=== PATIENT | male | born 2000 | race Caucasian/White ===

== ENCOUNTER → 2024-03-09 | Outpatient (CLI) | payer BC ==
--- NOTE | 2024-03-10 07:18 | CA ---
Transthoracic Echo Report Name: Bonifacio Headley Age: 23 Gender: M : 2000 Exam Date: 03/09/2024 11:29 Exam Location: [facility] Ht (in): 70 Wt (lb): 180 Ordering Physician: Bautista Hickey MD Attending/Referring Phys: Bautista Hickey MD Farm Equipment Engineer Amina Fan, [facility] Procedure CPT: Indications: R55 SYNCOPE AND COLLAPSE Cardiac Hx: Technical Quality: Fair Contrast 1: Total Dose (mL): Contrast 2: Total Dose (mL): MEASUREMENTS (Male / Female) Normal Values 2D ECHO LV Diastolic Diameter PLAX 5.1 cm 4.2 - 5.9 / 3.9 - 5.3 cm LV Systolic Diameter PLAX 3.6 cm IVS Diastolic Thickness 0.8 cm 0.6 - 1.0 / 0.6 - 0.9 cm LVPW Diastolic Thickness 0.7 cm 0.6 - 1.0 / 0.6 - 0.9 cm LV Relative Wall Thickness 0.3 RV Internal Dim ED PLAX 3.1 cm LVOT Diameter 2.1 cm Aortic Root Diameter 2.8 cm LV Diastolic Volume MOD BP 121.9 cm??? 67 - 155 / 56 - 104 cm??? LV Systolic Volume MOD BP 54.3 cm??? 22 - 58 / 19 - 49 cm??? LV Ejection Fraction MOD BP 55.5 % >= 55 % LV Cardiac Index MOD BP 2679.9 cm???/min???m??? LV Diastolic Volume MOD 4C 121.5 cm??? LV Systolic Volume MOD 4C 58.0 cm??? LV Ejection Fraction MOD 4C 52.3 % LV Cardiac Index MOD 4C 2516.6 cm???/min???m??? LV Diastolic Length 4C 8.7 cm LV Systolic Length 4C 6.9 cm LV Diastolic Volume MOD 2C 117.1 cm??? LV Systolic Volume MOD 2C 47.2 cm??? LV Ejection Fraction MOD 2C 59.7 % LV Cardiac Index MOD 2C 2771.7 cm???/min???m??? LV Diastolic Length 2C 8.3 cm LV Systolic Length 2C 6.4 cm Ascending Aorta Diameter 2.6 cm DOPPLER AV Peak Velocity 119.6 cm/s AV Peak Gradient 5.7 mmHg AV Mean Velocity 74.8 cm/s AV Mean Gradient 2.7 mmHg AV Velocity Time Integral 22.3 cm LVOT Peak Velocity 110.9 cm/s LVOT Peak Gradient 4.9 mmHg LVOT Velocity Time Integral 22.1 cm LVOT Stroke Volume 74.5 cm??? LVOT Stroke Volume Index 37.3 ml/m??? LVOT Cardiac Index 2953.6 cm???/min???m??? AV Area Cont Eq vti 3.3 cm??? AV Area Cont Eq pk 3.1 cm??? Mitral E Point Velocity 88.8 cm/s Mitral A Point Velocity 59.0 cm/s Mitral E to A Ratio 1.5 MV Deceleration Time 183.1 ms MV E' Velocity 13.6 cm/s Mitral E to MV E' Ratio 6.5 PV Peak Velocity 94.9 cm/s PV Peak Gradient 3.6 mmHg FINDINGS Left Ventricle Left ventricular ejection fraction is estimated at 55-60%. Left ventricular cavity size normal. Left ventricular wall thickness normal. No obvious regional wall motion abnormalities. Normal left ventricular diastolic filling pattern. Right Ventricle Normal right ventricular size and function. Unable to estimate the right ventricular systolic pressure. Right Atrium Normal right atrial size. Left Atrium Normal left atrial size. Mitral Valve Structurally normal mitral valve. No evidence for mitral valve prolapse. No mitral stenosis. Trace mitral regurgitation. Aortic Valve Trileaflet aortic valve. No aortic valve stenosis or regurgitation. Tricuspid Valve Structurally normal tricuspid valve. No tricuspid stenosis. Trace tricuspid regurgitation. Pulmonic Valve Structurally normal pulmonic valve. No pulmonic stenosis. No pulmonic regurgitation. Pericardium No pericardial effusion. Aorta Normal size aortic root and proximal ascending aorta. CONCLUSIONS 1. Normal left ventricular size and systolic function 2. Trace mitral and tricuspid regurgitation Previewed by: Dr. Na Dallas MD (Electronically Signed) Final Date: 10 Mar 2024 07:17
== END | disposition home or self-care (01) ==
LOC: RADECHMAIN 11:22
PROVIDERS: ATTEND Family Medicine
DX: I08.1 Rheumatic disorders of both mitral and tricuspid valves (principal); R55 Syncope and collapse
CPT/HCPCS: 93306